=== PATIENT | male | born 1975 | race African-American/Black ===

== ENCOUNTER 2022-09-21 04:52 | Day surgery (SDC) | payer OTHER ==
[2022-09-19 13:47] VITALS: BMI 27.1
[~2022-09-21 04:52] MED LIST: BUPIVACAINE HCL/PF 0.5% (5MG/ML) 10 ML VIAL IJ ONE; IOHEXOL 180 MG/1 ML ML IJ ONE; LIDOCAINE HCL 1% PRESERVATIVE FREE - 30ML VIAL IJ ONE; TRIAMCINOLONE ACET 40MG/1ML VIAL IM ONE
[2022-09-21] MEDS ORDERED: BUPIVACAINE HCL/PF 0.5% (5MG/ML) 10 ML VIAL ONE (07:50)
[2022-09-21] MEDS ORDERED: BUPIVACAINE HCL/PF 0.25% (2.5MG/ML) 10 ML VIAL ONE ×2 (07:50→15:23)
[2022-09-21] MEDS ORDERED: TRIAMCINOLONE ACET 40MG/1ML VIAL ONE (07:50)
[2022-09-21] MEDS ORDERED: ACETAMINOPHEN 500 MG TABLET (FP) PO PRN (09:13)
[2022-09-21] MEDS ORDERED: DEXAMETHASONE SOD PHOSPHATE 10 MG/1 ML VIAL ONE (15:23)
[2022-09-21] MEDS ORDERED: LIDOCAINE HCL/PF 1% SDV 5ML VIAL ONE (15:26)
[2022-09-21] MEDS ORDERED: BUPIVACAINE HCL/PF 0.5% (5MG/ML) 10 ML VIAL IJ ONE (16:14)
[2022-09-21] MEDS ORDERED: LIDOCAINE HCL 1% PRESERVATIVE FREE - 30ML VIAL IJ ONE (16:14)
[2022-09-21] MEDS ORDERED: TRIAMCINOLONE ACET 40MG/1ML VIAL IM ONE (16:14)
[2022-09-21] MEDS ORDERED: IOHEXOL 180 MG/1 ML ML IJ ONE (16:14)
[2022-09-21 17:58] VITALS: BP 148/82; PULSE 63; RESP 20; TEMP 97.2
== END 2022-09-21 17:23 | disposition home or self-care (01) ==
LOC: JASU-SURG 04:52
PROVIDERS: ATTEND Pain Medicine Pain Medicine
PROC: 3E0U3BZ Introduction of Anesthetic Agent into Joints, Percutaneous Approach (ICD-10-PCS; 2022-09-21)
PROC: 3E0U33Z Introduction of Anti-inflammatory into Joints, Percutaneous Approach (ICD-10-PCS; principal; 2022-09-21 16:45)
DX: M16.12 Unilateral primary osteoarthritis, left hip (principal)
CPT/HCPCS: 76000-TC-FY; J1100